=== PATIENT | female | born 1990 | race Two or more races ===

== ENCOUNTER 2017-05-29 05:20 | Inpatient (IN) | payer OTHER ==
[2017-05-29] MEDS ORDERED: ELECTROLYTE-148 SOLN 500 ML IV ONE (06:32)
[2017-05-29] MEDS ORDERED: CITRIC ACID/SODIUM CITRATE 30 ML UNIT-DOSE CUP PO ONE (06:32)
[2017-05-29] MEDS ORDERED: ELECTROLYTE-148 SOLN 1,000 ML IV SCH (06:45)
--- NOTE | 2017-05-29 06:50 | HP ---
Past Medical History - Primary Care Physician PCP:: Hemalatha Clay - Admission Chief Complaint: 26 yrs , 39.3 weeks iup previous c/s , requests for repeat c/s History of Present Illness: care at 2, [facility] uneventful . wt gain 37 lbs work Up : O Pos, , Rpr nr, Hbsag neg, Rubella pos, Quantiferon neg, 1 HR GTt 124, Pap NILM, Gc/Ct neg, GBS neg , Hiv neg US was done , reprt not available now History Source: Patient, Medical Record Limitations to Obtaining History: No Limitations - Past Medical History VICE PRESIDENT INTEGRATED: No: Migraine, Seizure Cardiovascular: No: HTN Pulmonary: No: Asthma, COPD Gastrointestinal: No: Gastritis Hepatobiliary: No: Hepatitis B Renal/: No: UTI ...: 3 ...Para: 1 (09/13/2015 primaryc/section due to distress ) ...Term: 1 ...Spon : 1 (2013 D&C done ) ...LMP: 07/26/16 ...EDC by Dates: 05/12/17 ...EDC by Sono: 06/02/17 (39.3 weeks ) Infectious Disease: No: AIDS, HIV, STD's Psych: No: Addictions, Anxiety, Bipolar, Depression, Panic Endocrine: No: Diabetes Mellitus, Hypothyroidism - Past Surgical History Past Surgical History: Yes: (09/11/2015) Hx Myomectomy: No Hx Transabdominal Cerclage: No - Smoking History Smoking history: Never smoked Have you smoked in the past 12 months: No - Alcohol/Substance Use Hx Alcohol Use: No History of Substance Use: reports: None - Social History History of Recent Travel: No Home Medications - Allergies Allergies/Adverse Reactions: Allergies Allergy/AdvReac Type Severity Reaction Status Date / Time No Known Allergies Allergy Verified 05/29/17 05:42 - Home Medications Home Medications: Ambulatory Orders Vitamins (Sjr) - 1 tab PO DAILY tablet MDD 1 09/14/15 Physical Exam - Maternity Vital Signs: Selected Entries 05/29/17 07:00 Temperature 98.3 F Pulse Rate 93 H Blood Pressure 106/57 Weight 193 lb Constitutional: Yes: Well Nourished, No Distress Eyes: Yes: WNL HENT: Yes: WNL Neck: Yes: WNL Cardiovascular: Yes: WNL, Regular Rate and Rhythm Lungs: Clear to auscultation Breast(s): Yes: WNL - Abdominal Exam/OB Fundal Height: 40 Number of Fetuses: Single Presentation: Vertex Contractions: No Monitor Mode: External Heart Rate (range): 120-130 Heart Rate Location: [facility] Category: I Accelerations: Uniform Decelerations: None - Vaginal Exam/OB Vaginal Bleediing: No Speculum Exam: No Dilatation (cm): close Effacement (%): unefface Presentation: Vertex/Position Station: -3 - Physical Exam Musculoskeletal: Yes: WNL Extremities: Yes: WNL. No: Calf Tenderness Edema: Yes Edema: LLE: 1+, RLE: 1+ Integumentary: Yes: Incision (old pfannensteil scar) Deep Tendon Reflex Grade: Normal +2 ...Motor Strength: WNL Psychiatric: Yes: WNL, Alert, Oriented - Labs Lab Results: Laboratory Tests 09/13/15 05/27/17 05/27/17 08:50 10:00 10:00 WBC 10.1 H Hgb 12.1 Hct 36.1 Plt Count 111 L D Neutrophils % 78.2 Lymphocytes % 13.7 Monocytes % 6.8 Eosinophils % 0.9 Basophils % 0.4 INR 1.02 PTT (Actin FS) 28.1 Sodium Potassium Chloride Carbon Dioxide BUN Creatinine Random Glucose Calcium AST ALT Urine Protein Ur Leukocyte Esterase Urine RBC Urine WBC RPR Titer 05/27/17 05/27/17 05/27/17 10:00 10:00 10:00 WBC Hgb Hct Plt Count Neutrophils % Lymphocytes % Monocytes % Eosinophils % Basophils % INR PTT (Actin FS) Sodium 138 Potassium 4.1 Chloride 104 Carbon Dioxide 26 BUN 5 L D Creatinine 0.4 L Random Glucose 98 D Calcium 9.0 AST 12 L ALT 17 Urine Protein Negative Ur Leukocyte Esterase Trace Urine RBC None Urine WBC 3 RPR Titer Nonreactive Problem List - Problems (1) with 39 completed weeks gestation Code(s): Z3A.39 - 39 WEEKS GESTATION OF (2) Previous section Code(s): Z98.891 - HISTORY OF UTERINE SCAR FROM PREVIOUS SURGERY Assessment/Plan 26 yrs , 39.3 weeks, previous c/s, GBS neg, requests for repeat c/ section plan Repeat c/section today
[2017-05-29 07:33] VITALS: BMI 30.2
[2017-05-29] MEDS ORDERED: morphine SULFATE/Preservative Free 0.5 MG/ML (1cc Syringe) SPIN ONE (12:57)
[2017-05-29] MEDS ORDERED: ONDANSETRON 4 MG/2 ML VIAL IVPB PRN (13:11)
[2017-05-29] MEDS ORDERED: ACETAMINOPHEN 325 MG TABLET (FP) PO PRN (13:11)
[2017-05-29] MEDS ORDERED: IBUPROFEN 800 MG/8 ML IJ IVPB PRN (14:55)
[2017-05-29] MEDS ORDERED: METHYLERGONOVINE MALEATE 0.2 MG/1 ML AMP IM PRN (14:55)
[2017-05-29] MEDS ORDERED: D5W-LR W/ 20 UNITS OXYTOCIN 1,000 ML IV SCH (15:00)
--- NOTE | 2017-05-29 15:09 | PN ---
Delivery - Delivery Section: Repeat, Low Flap Transverse (39.2 weeks, previous c/s, requests for c/sect) Type of Anesthesia: Spinal Episiotomy/Laceration: None EBL (cc): 600 (cabrera out put 100 ml blanca color ) Delivery, Single - Stages of Labor Date of Delivery: 05/29/17 Time of Delivery: 13:08 Time Placenta Delivered: 13:10 Placenta: Yes: Manual Removal, Uterine Exploration - Condition of Infant Piano Bench Assembler/Qual Field Manager Present: Yes Name: No Diaz Infant Gender: Female Weight: 7 lb 11 oz Position: Left, OT Total Hours ROM (Hrs/Mins): 3MIN - 1 Minute Total Score: 9 5 Minutes Total Score: 9 - [place] Feeding Plan Initial Plan: Exclusive throughout hospitalization Remarks - Remarks Remarks: 26 yrs , 39.3 weeks, iup, previous c/section , requests for repeat c/s PNC at [address] [place] [address] GBS neg Intraop course uneventful. 1 gm iv Ancef inraop was given
--- NOTE | 2017-05-29 15:14 | OP ---
Operative Note - Note: Operative Date: 05/29/17 Pre-Operative Diagnosis: 39.3 weeks, previous c/s requests for c/section Operation: Repeat LFTC/section Findings: 1.08 PM, Baby Girl, 9/9 , Wt 7'11" , Vx LOT Both Tubes & ovaries normal Dr Diaz Probate Judge present in the OR Surgeon: Hemalatha Clay Hop Sorter: Sumanth Rivero Anesthesiologist/INTERNAL COMBUSTION ENGINE INSPECTOR: Amarjit Apple Anesthesia: Spinal Specimens Removed: cord blood. placenta Estimated Blood Loss (mls): 600 Drains, Volume Out (mls): 100 (blanca color cabrera output ) Fluid Volume Replaced (mls): 1,000 (iv ancef 1 gm intraop given ) Operative Report Dictated: Yes
--- NOTE | 2017-05-29 20:12 | OP ---
DATE OF OPERATION: 05/29/2017 PREOPERATIVE DIAGNOSIS: Patient at 39-3/7 weeks, previous section, request for section. OPERATION DONE: Repeat low-flap transverse section. SURGEON: Lolly Clay MD INSURANCE CONSULTANT SURGEON: EDY Shin ANESTHESIOLOGIST: Amarjit Apple MD ANESTHESIA: Spinal. FINDINGS: This is a 26-year-old, 3, para 1-0-1-1, at 39-3/7 weeks, not in labor, request for repeat section. PROCEDURE: Patient's abdomen was shaved, prepped. Costa catheter was placed. She was taken to the operating room table. Spinal anesthesia was given. She was placed in supine position. Abdomen was painted and draped in usual manner and then Pfannenstiel incision was made through previous scar, skin, subcutaneous tissue. Anterior rectus sheath was incised transversely. Bleeding points were clamped and cauterized. Rectus muscle was from the rectus sheath. Parietal peritoneum was opened vertically. Lower flap parietal peritoneum was incised transversely. Bladder was pushed down. Lower uterine segment was incised transversely and the amniotic fluid was clear. Baby girl was delivered at 1:08 p.m. was 9 and 9. Baby's weight was 7 pounds 11 ounces. Baby was delivered from LOT position. Cord was clamped, cut. Cord blood was collected. Dr. Diaz, bailer operators supervisor, was present in the room. Placenta was removed completely with the membranes after collecting the cord blood. Uterine cavity was cleaned. Then uterine incision was closed in 2 layers, first layer was a continuous locking suture with a Biosyn 0 suture, second layer was a continuous intermittent locking with a Biosyn 0 suture. Hemostasis was verified. The bladder peritoneum was closed with a Biosyn 0 suture. Hemostasis was checked again. Both tubes and ovaries were normal. Irrigation was done. The sponge, instrument, needle count was correct. Closure of the abdomen was done. Parietal peritoneum was closed with a 2-0 Vicryl suture, continuous sutures were taken. Underneath the rectus sheath, hemostasis was verified. The rectus sheath was closed with Vicryl 0 continuous sutures. Hemostasis was checked in subcutaneous tissue. Hemostasis was checked again. Interrupted sutures were taken in subcutaneous tissue with a Biosyn 0 suture. The skin was approximated with milton. Pressure dressing was given. Blood clots were removed from the vagina. Patient was transferred to the recovery room in stable condition. The estimated blood loss was 600 mL. Intraoperative urine output was 100 mL and blanca color. She received 1 g of IV Ancef prior to the incision. LOLLY CLAY M.D. [id number]
[2017-05-29] MEDS ORDERED: DEXTROSE 5%-WATER - 50 ML IVPB ONE (21:57)
[2017-05-29] MEDS ORDERED: ceFAZolin SODIUM 1 GM VIAL ONE (21:57)
[2017-05-29] MEDS: CEFAZOLIN 1 GM in DEXTROSE 5%-WATER - 50 ML IVPB SCH (21:58)
[2017-05-30] MEDS ORDERED: DEXTROSE 5%-WATER - 50 ML IVPB ONE ×2 (04:14→13:18)
[2017-05-30] MEDS ORDERED: ceFAZolin SODIUM 1 GM VIAL ONE ×2 (04:14→13:18)
[2017-05-30] MEDS: CEFAZOLIN 1 GM in DEXTROSE 5%-WATER - 50 ML IVPB SCH ×2 (04:26→13:34)
[2017-05-30 08:35] LABS: BASOPHIL 0.5 % (0-2.0); EOSINOPHIL 1.3 % (0-4.5); MCH 29.5 pg (25.7-33.7); MCHC 33.4 g/dl (32.0-36.0); MEAN CELL VOLUME 88.6 fl (80-96); MEAN PLT VOLUME 12.6 fl (7.5-11.1); PLATELET COUNT 97 K/MM3 (134-434); RDW 14.6 % (11.6-15.6); WHITE BLOOD COUNT 10.6 K/mm3 (4.0-10.0)
[2017-05-30] MEDS: ENOXAPARIN NA (PORCINE) 40 MG/0.4 ML DISP.SYRIN SQ SCH (09:36)
--- NOTE | 2017-05-30 09:48 | PN ---
Post Progress Note - Subjective Subjective: 26 yo Para 2 status post repeat , seen and evaluated. She's out of bed to chair. She plans to breast feed. Post Day: 1 Type of Delivery: Repeat C/S Vital Signs: Vital Signs Temperature 98.9 F 05/30/17 06:00 Pulse Rate 78 05/30/17 06:00 Respiratory Rate 18 05/30/17 06:00 Blood Pressure 96/57 05/30/17 06:00 O2 Sat by Pulse Oximetry (%) 100 05/29/17 14:55 Breast Exam: Yes: Soft Uterus: Yes: Fundus Firm Incision: Yes: Dressing dry and intact Abdomen/GI: Yes: Abdomen soft Lochia: Yes: Rubra Lochia, amount: Small Extremities: Yes: Calves non-tender Perineum: Yes: Intact Activity: Ambulating - Labs Labs: CBC WBC 10.6 K/mm3 (4.0-10.0) H 05/30/17 07:45 RBC 4.01 M/mm3 (3.60-5.2) 05/30/17 07:45 Hgb 11.9 GM/dL (10.7-15.3) 05/30/17 07:45 Hct 35.5 % (32.4-45.2) 05/30/17 07:45 MCV 88.6 fl (80-96) 05/30/17 07:45 MCH 29.5 pg (25.7-33.7) 05/30/17 07:45 MCHC 33.4 g/dl (32.0-36.0) 05/30/17 07:45 RDW 14.6 % (11.6-15.6) 05/30/17 07:45 Plt Count 97 K/MM3 (134-434) L 05/30/17 07:45 MPV 12.6 fl (7.5-11.1) H D 05/30/17 07:45 Neutrophils % 81.0 % (42.8-82.8) 05/30/17 07:45 Lymphocytes % 9.7 % (8-40) D 05/30/17 07:45 Monocytes % 7.5 % (3.8-10.2) 05/30/17 07:45 Eosinophils % 1.3 % (0-4.5) 05/30/17 07:45 Basophils % 0.5 % (0-2.0) 05/30/17 07:45 Assessment/Plan Status post Ambulation Analgesia as needed Continue Post op care
[2017-05-30] MEDS ORDERED: oxyCODONE HCL 5 MG TABLET PO PRN (11:00)
--- NOTE | 2017-05-30 11:01 | PN ---
Progress Note (short form) - Note Progress Note: Anesthesiology Post-op POD#1 s/p repeat C/S under spinal anesthesia. Pt. feels well, pain controlled with meds. She denies h/a and is able to walk and to urinate without difficulty. She c/o some itching but has meds ordered to alleviate this. Otherwise, VSS.
[2017-05-30] MEDS: PRENATAL VITAMINS W/ FOLIC ACID TABLET (FP) PO SCH (11:55)
[2017-05-30] MEDS ORDERED: BISACODYL 10 MG SUPP.RECT RC PRN (14:55)
[2017-05-30] MEDS: SIMETHICONE 80 MG TAB.CHEW (FP) PO PRN (19:10)
[2017-05-30] MEDS: oxyCODONE HCL 5 MG TABLET PO PRN (19:12)
[2017-05-30] MEDS: IBUPROFEN 600 MG TABLET (FP) PO PRN (19:13)
[2017-05-30] MEDS: FERROUS SO4 325 MG TABLET (FP) PO SCH (21:32)
[2017-05-30] MEDS: SENNOSIDES/DOCUSATE COMBO (SENNA PLUS) TABLET (UD) PO PRN (21:33)
--- NOTE | 2017-05-31 08:32 | PN ---
Progress Note (short form) - Note Progress Note: pod 2 doing well, ambulating CBC, BMP 05/30/17 07:45 Last Vital Signs Temp Pulse Resp BP Pulse Ox 98 F 73 18 101/55 100 05/30/17 21:00 05/30/17 21:00 05/30/17 21:00 05/30/17 21:00 05/29/17 14:55 abdomen soft, no distension, no cva incision dry. clean no calf tenderness no excess vaginal bleeding plan ambulate, cbc in am
[2017-05-31] MEDS: PRENATAL VITAMINS W/ FOLIC ACID TABLET (FP) PO SCH (09:53)
[2017-05-31] MEDS: ENOXAPARIN NA (PORCINE) 40 MG/0.4 ML DISP.SYRIN SQ SCH (09:53)
[2017-05-31] MEDS: FERROUS SO4 325 MG TABLET (FP) PO SCH ×2 (09:53→22:01)
[2017-05-31] MEDS ORDERED: DIPHTH,PERTUSS(ACELL),TET 0.5 ML DISP.SYRIN IM ONE (10:00)
[2017-05-31] MEDS: SIMETHICONE 80 MG TAB.CHEW (FP) PO PRN (22:01)
[2017-05-31] MEDS: SENNOSIDES/DOCUSATE COMBO (SENNA PLUS) TABLET (UD) PO PRN (22:02)
[2017-05-31] MEDS: IBUPROFEN 600 MG TABLET (FP) PO PRN (22:02)
[2017-05-31] MEDS: oxyCODONE HCL 5 MG TABLET PO PRN (22:03)
[2017-06-01 07:59] LABS: BASOPHIL 0.7 % (0-2.0); EOSINOPHIL 3.1 % (0-4.5); MCH 29.6 pg (25.7-33.7); MCHC 33.7 g/dl (32.0-36.0); MEAN CELL VOLUME 87.8 fl (80-96); MEAN PLT VOLUME 12.5 fl (7.5-11.1); NEUTROPHILS 68.9 % (42.8-82.8); PLATELET COUNT 113 K/MM3 (134-434); RDW 14.4 % (11.6-15.6); WHITE BLOOD COUNT 7.8 K/mm3 (4.0-10.0)
[2017-06-01] MEDS: FERROUS SO4 325 MG TABLET (FP) PO SCH (09:32)
[2017-06-01] MEDS: ENOXAPARIN NA (PORCINE) 40 MG/0.4 ML DISP.SYRIN SQ SCH (09:33)
[2017-06-01] MEDS: PRENATAL VITAMINS W/ FOLIC ACID TABLET (FP) PO SCH (09:33)
[2017-06-01 11:20] VITALS: BP 103/56; PULSE 86; TEMP 98.9
--- NOTE | 2017-06-01 14:06 | DS ---
Physical Exam-ROCKET ENGINE TESTER Vital Signs: Vital Signs Temperature 98.9 F 06/01/17 10:00 Pulse Rate 86 06/01/17 10:00 Respiratory Rate 18 06/01/17 10:00 Blood Pressure 103/56 06/01/17 10:00 O2 Sat by Pulse Oximetry (%) 100 05/29/17 14:55 Constitutional: Yes: Well Nourished, No Distress, Other (pain scale3/10) Eyes: Yes: WNL HENT: Yes: WNL, Normocephalic Neck: Yes: WNL Cardiovascular: Yes: WNL, Regular Rate and Rhythm Respiratory: Yes: WNL, CTA Bilaterally Gastrointestinal: Yes: WNL, Normal Bowel Sounds ...Rectal Exam: Yes: WNL Renal/: Yes: WNL Pelvis: Yes: WNL External Genitalia: Yes: Normal Vaginal Exam: Yes: Normal ....Post : Yes: Uterus firm, Uterus non-tender, Moderate lochia rubra Breast(s): Yes: WNL (not engorged, BF) Musculoskeletal: Yes: WNL Extremities: Yes: WNL. No: Calf Tenderness Edema: Yes Edema: LLE: Trace, RLE: Trace Wound/Incision: Yes: Clean/Dry, Well Approximated, Nadia Intact, Open to air. No: Draining, Reddened, Bleeding Neurological: Yes: WNL, Alert, Oriented ...Motor Strength: WNL Psychiatric: Yes: WNL, Alert, Oriented Labs: CBC, BMP 06/01/17 06:00 Delivery - Delivery Section: Repeat, Low Flap Transverse (39.2 weeks, previous c/s, requests for c/sect) Type of Anesthesia: Spinal Episiotomy/Laceration: None EBL (cc): 600 (cabrera out put 100 ml blanca color ) Delivery, Single - Stages of Labor Date of Delivery: 05/29/17 Time of Delivery: 13:08 Time Placenta Delivered: 13:10 Placenta: Yes: Manual Removal, Uterine Exploration - Condition of Infant General Maintenance Helper/Derrickman Helper Present: Yes Name: No Diaz Infant Gender: Female Weight: 7 lb 11 oz Position: Left, OT Total Hours ROM (Hrs/Mins): 3MIN - 1 Minute Total Score: 9 5 Minutes Total Score: 9 - [place] Feeding Plan Initial Plan: Exclusive throughout hospitalization Remarks - Remarks Remarks: stable plan : ct post op care discharge today will RTC on Saturday for nadia removal Discharge Summary Reason For Visit: ADMIT Condition: Stable - Instructions Diet, Activity, Other Instructions: Post Instructions DIET: Continue good diet high in protein, calcium, and iron rich foods. Drink at least eight (8) glasses of water daily in addition to other fluids. ct Regular diet MEDICATIONS: Continue vitamins and iron as previously directed. Motrin and Tylenol may be taken for minor discomfort. ACTIVITY: Mild to moderate exercise may be started in two (2) weeks. Take frequent rest periods. Resume normal activity after six (6) week check up. WOUND CARE OF OPERATIVE SITE: Continue use of perineal bottle until vaginal discharge stops. Keep area clean. Shower daily. Keep abdominal wound dry. Report any drainage or redness to physician. Tub baths, tampons and douches are not permitted for [address] Breast feeding & or Bottle feeding BREAST CARE: (For those that are not breast feeding): If engorgement occurs: Wear tight fitting bra. Take Tylenol or Motrin for pain. Apply cold packs (ice in bags to each breast ) FAMILY PLANNING: There are many control alternatives to pursue and they should be discussed at your first office visit. You may resume sexual activity after your six (6) week check up. (Remember, breast feeding is not a contraceptive) NEXT PHYSICIAN APPOINTMENT: Be certain to call for a one (1) week appointment, unless otherwise directed. RTC on Saturday for nadia removal Call Clinic or got to Emergency Dept if you have any of the following: Heavy vaginal bleeding Painful urination Leg pain Unusual odor noted to vaginal bleeding High fever Red streaking noted on breast Referrals: Hemalatha Clay MD [Staff Physician] - Disposition: HOME - Home Medications Comprehensive Discharge Medication List: Ambulatory Orders Vitamins (Sjr) - 1 tab PO DAILY tablet MDD 1 09/14/15 Acetaminophen [Tylenol .Regular Strength -] 500 mg PO Q4H PRN #30 tablet Ibuprofen [Motrin -] 600 mg PO Q4H PRN #30 tablet 05/31/17 Vitamins (Sjr) - 1 tab PO DAILY #30 tablet 05/31/17
--- NOTE | 2017-06-03 12:36 | PATH ---
Surgical Pathology Report Patient Name: PASQUALE VICTOR [facility]. Rec. #: [id number] /Age/Gender: 1990 (Age: 26) / F Account: [id number] Location: [facility] OBS/VICE PRESIDENT PROCESS Taken: 05/29/2017 Received: 05/30/2017 Reported: 06/03/2017 Physicians: Hemalatha Clay M.D. Specimen(s) Received PLACENTA Clinical History , 39.3 weeks SPAB x1, previous x1, D&C x1 Final Diagnosis PLACENTA, DELIVERY: FOCALLY DISRUPTED THIRD TRIMESTER PLACENTA WITH THREE VESSEL UMBILICAL CORD AND UNREMARKABLE PLACENTAL MEMBRANES. Electronically Signed Lucas Solomon M.D. Gross Description The specimen is received fresh labeled placenta and is a 482 gram, 16.5 x 15.0 x 2.5 cm. placenta with attached membranes and umbilical cord. The attached membranes are miller, translucent with focal opacities and insert marginally. The umbilical cord measures 28 cm. in length and averages 1 cm. in diameter. The cord inserts eccentrically, 4 cm. to the nearest margin. No true knots or strictures are identified. Cut surface of the umbilical cord reveals 3 vessels. The surface is benitez blue with moderate fibrin deposition and appropriate caliber vessels. The maternal surface is red-brown with focal defects. Sectioning reveals red-brown, spongy parenchyma. No lesions are identified. Cut Tobacco Bulker sections are submitted in three cassettes as follows: 1- membrane rolls and umbilical cord; 2-3- full thickness sections of placenta. 05/31/201705/31/2017
== END 2017-06-01 13:03 | disposition home or self-care (01) | DRG 540 ==
LOC: UNDOADMIN 05:20 → JLDR 05:20 → J3W 16:15
PROVIDERS: ADMIT Obstetrics & Gynecology; ATTEND Obstetrics & Gynecology
PROC: 10D00Z1 Extraction of Products of Conception, Low, Open Approach (ICD-10-PCS; principal; 2017-05-29)
DX: O34.211 Maternal care for low transverse scar from previous cesarean delivery (principal); Z3A.39 39 weeks gestation of pregnancy; Z37.0 Single live birth
CPT/HCPCS: 36415; 85025; 88307-TC; 90715